=== PATIENT | male | born 1990 | race Caucasian/White ===

== ENCOUNTER 2023-06-21 08:58 | Emergency (ER) | payer BC, SELFPAY ==
[2023-06-21 09:00] VITALS: BP 149/103
--- NOTE | 2023-06-21 09:06 | ED.GENMED ---
History of Present Illness
<oCrie Macias PA-C - Last Filed: 06/21/23 10:06>
General
Chief Complaint: Musculo-Skeletal Complaint
Source: patient
Exam Limitations: none
Time Seen by Provider: 06/21/23 09:06
Nursing documentation reviewed up to this point in time: agreed with
Travel History
Have you had any contact with someone who has COVID-19?: No
Do you have any symptoms of coronavirus? Fever > 100 degrees, chills, cough, shortness of breath, sore throat, loss of taste or smell, muscle aches, or headache?: No
History of Present Illness
History of Present Illness:
This is a 32 y/o male with no PMH presenting to the ER today with right ankle pain and swelling x1 day. Patient states that he was walking down the stairs when he tripped down 1 step and twisted his ankle inward. Patient states that he did not
fall. He denies hitting his head or injuring anything else. He states that immediately after the injury, he had a lot of pain and tingling. He states that he was not able to bear weight at the time. He states that now, he is able to bear some
weight but not a lot without a lot of pain and discomfort. He currently denies any numbness or tingling. He did not take anything for the pain. This occurred about an hour ago. He has no past medical history and does not take any medications
daily. He is not on any blood thinners. He does admit to swelling on his ankle but he states that it is gone down since he has been here.
Review of Systems
<Corie Macias PA-C - Last Filed: 06/21/23 10:06>
Review of Systems
All Other Systems: ROS reviewed and negative except as documented in HPI and ROS
Phy Exam
<Corie Macias PA-C - Last Filed: 06/21/23 10:06>
Physical Exam
Physical Exam:
General: patient is well appearing and in no acute distress
Skin: skin is warm and dry, no rashes or lesions
Cardiac: regular rate
Pulm: normal respiratory effort
Peripheral Vascular: 2+ dp/pt pulses on the right.
Musculoskeletal: full passive range of motion of right ankle joint with lateral soft tissue swelling. No bony tenderness to palpation of the right lateral/medial malleoli. Negative anterior drawer test. No laxity with varus/valgus testing.
Course
<Corie Macias PA-C - Last Filed: 06/21/23 10:06>
Orders/Labs/Results
Orders:
Orders
06/21/23 09:02
Ankle, Right 3 view CR [CR Ankle - Right Min 3 Views *] Urgent
Comment:
Reason For Exam: right ankle pain twisted this morning
06/21/23 09:34
Ibuprofen [Motrin] 600 mg PO NOW STA
Vital Signs
Initial and Last Documented VS:
Initial Vital Signs
Temp Pulse Resp BP Pulse Ox
98.0 F 52 16 149/103 98
06/21/23 09:00 06/21/23 09:00 06/21/23 09:00 06/21/23 09:00 06/21/23 09:00
Last Documented Vital Signs
Temp Pulse Resp BP Pulse Ox
98.0 F 52 16 149/103 98
06/21/23 09:00 06/21/23 09:00 06/21/23 09:00 06/21/23 09:00 06/21/23 09:00
<Alexandro Maria DO - Last Filed: 06/21/23 09:43>
Orders/Labs/Results
Orders:
Orders
06/21/23 09:02
Ankle, Right 3 view CR [CR Ankle - Right Min 3 Views *] Urgent
Comment:
Reason For Exam: right ankle pain twisted this morning
06/21/23 09:34
Ibuprofen [Motrin] 600 mg PO NOW STA
Vital Signs
Initial and Last Documented VS:
Initial Vital Signs
Temp Pulse Resp BP Pulse Ox
98.0 F 52 16 149/103 98
06/21/23 09:00 06/21/23 09:00 06/21/23 09:00 06/21/23 09:00 06/21/23 09:00
Last Documented Vital Signs
Temp Pulse Resp BP Pulse Ox
98.0 F 52 16 149/103 98
06/21/23 09:00 06/21/23 09:00 06/21/23 09:00 06/21/23 09:00 06/21/23 09:00
<ОЛЕГ Dumas Last Filed: 06/21/23 10:06>
MDM/Problems Addressed
Differential Diagnosis Includes:
calcaneofibular ligament tear/strain, anterior talofibular ligament tear/sprain, lateral malleolus fracture, bimalleolar fracture
MDM/Problems Addressed:
ankle pain/swelling
Chronic conditions affecting care:
n/a
Acute Exacerbation and/or Progression of Chronic Illness:
n/a
<ОЛЕГ Dumas Last Filed: 06/21/23 10:06>
*Radiology
Radiology exam reviewed: preliminary read by ED provider (no acute fracture or dislocation)
*Pulse Oximetry
Patient hypoxic: no
*Critical Care Note
Total Time (30-74mins, 75-104mins- exclusive of procedures): Not Applicable
Data Reviewed
Review of Other/Old Records Reveals: Records (no previous records in [facility] to review )
Source: patient
Prescriptions/Medications Considered But Not Given:
n/a
Further Testing Considered But Not Given:
n/a
<ОЛЕГ Dumas Last Filed: 06/21/23 10:06>
Patient Management
Escalation/DeEscalation of care consider admission/obs:
This is a 32 y/o male with no PMH presenting to the ER today with right ankle pain and swelling after tripping down one step and twisting his right ankle. Patient states that he inverted the ankle. At this time, he is able to bear partial weight. On
exam, he has swelling at the right lateral malleolus but no bony tenderness to palpation, negative anterior drawer, negative varus/valgus testing. His x-ray is negative for acute fracture or dislocation. Considering patient's exam is benign, he has
no acute fracture or dislocation, no signs of tendon rupture, no neurovascular compromise, patient can follow up with his primary care provider and use an air cast to aid in weight bearing.
ED Attending Note
<Corie Macias PA-C - Last Filed: 06/21/23 10:06>
-
Portions of this chart may have been created with voice recognition software.� Occasional wrong word or��sound alike� substitutions may have occurred due to the inherent limitations of voice recognition software.
<Alexandro Maria DO - Last Filed: 06/21/23 09:43>
ED Attending Note
Patient seen and examined by attending physician: Yes
I performed the substantive portion of visit, reviewed & personally made and approve the management plan that is documented in note by myself or LUCÍA.: Yes
ED Attending Note:
I agree with Corie's note.
Pt with right ankle pain after inversion injury.
+ swelling, minimal pain to palpation of lateral malleolus. NO significant laxity.
ankle x-ray: No fx on my personal review.
Discharge Plan
Departure
Patient Disposition: Home (Routine Discharge)
Date of Disposition: 06/21/23
Time of Disposition: 09:47
Patient with high blood pressure during this ER visit?: Yes
Condition: Good
Discharge Problem:
Ankle sprain
Instructions: Ankle Sprain (DC), How to Use Crutches, BLOOD PRESSURE
Activity Restrictions/Additional Instructions:
You can take ibuprofen for pain control. You can take 1 tablet every 6-8 hours as needed for pain. Please ice the area to help control swelling.
You can take the air cast off once you are able to bear weight comfortably.
Please follow-up with your primary care provider.
PLEASE RETURN SHOULD YOU EXPERIENCE INABILITY TO AMBULATE, SUDDEN WORSENING PAIN, REDNESS AROUND YOUR ANKLE, PALLOR, CHEST PAIN, SHORTNESS OF BREATH, OR OTHER CONCERNING SIGNS OR SYMPTOMS.
Interventions
Interventions:
*Risk Screen - Suicide Last Done: 06/21/23 09:32
*General Assessment Last Done: 06/21/23 09:32
*Neglect/Abuse Screening Last Done: 06/21/23 09:32
ED- Fall Risk Assessment Last Done: 06/21/23 09:32
*ED COVID-19 Vaccine History Last Done: 06/21/23 09:00
*Nursing Disposition Last Done: 06/21/23 10:00
ED-Musculoskeletal Assessment Last Done: 06/21/23 09:32
[2023-06-21 09:31] VITALS: BMI 27.9
--- NOTE | 2023-06-21 09:34 | EDRN ---
Dr. Maria in to see pt.
[2023-06-21] MEDS: MOTRIN 600 MG PO (09:42)
[2023-06-21 10:00] VITALS: BP 144/103
== END 2023-06-21 10:00 | disposition home or self-care (01) ==
LOC: EMR 08:58
PROVIDERS: EMERGENCY PHYSICIAN Emergency Medicine
DX: S93.401A Sprain of unspecified ligament of right ankle, initial encounter (principal); X50.1XXA Overexertion from prolonged static or awkward postures, initial encounter; Y93.01 Activity, walking, marching and hiking; R03.0 Elevated blood-pressure reading, without diagnosis of hypertension
CPT/HCPCS: 99283; 73610